=== PATIENT | male | born 1975 | race Two or more races ===

== ENCOUNTER 2018-03-04 17:37 | Emergency (ER) | payer OTHER ==
[~2018-03-04] VITALS: Ht 170.2 cm; Wt 74.8 kg
== END 2018-03-04 22:45 | disposition home or self-care (01) ==
LOC: ER 17:37
DX: R07.89 Other chest pain (principal)

== ENCOUNTER 2018-03-06 08:44 | Outpatient (CLI) | payer OTHER | END 2018-03-06 15:53 | disposition home or self-care (01) | LOC: NUCLEAR 08:44 | DX: I20.0 Unstable angina (principal); I10 Essential (primary) hypertension; E78.70 Disorder of bile acid and cholesterol metabolism, unspecified | CPT/HCPCS: 78452; 93017; A9500 ==

== ENCOUNTER 2019-11-12 11:40 | Outpatient (CLI) | payer OTHER | END 2019-11-12 11:41 | disposition home or self-care (01) | LOC: LAB 11:40 | PROVIDERS: ATTEND Obstetrics & Gynecology | DX: R05 Cough (principal); E78.2 Mixed hyperlipidemia; Z11.3 Encounter for screening for infections with a predominantly sexual mode of transmission ==

== ENCOUNTER 2020-12-14 08:00 | Outpatient (CLI) | payer OTHER | END 2020-12-14 08:30 | disposition home or self-care (01) | LOC: PPH VACUNA 08:00 | PROVIDERS: ATTEND Emergency Medicine Pediatric Emergency Medicine | DX: Z23 Encounter for immunization (principal) ==

== ENCOUNTER 2024-04-20 14:39 | Outpatient (CLI) | payer OTHER | END 2024-04-20 14:40 | disposition home or self-care (01) | LOC: RAD 14:39 | PROVIDERS: ATTEND Emergency Medicine Pediatric Emergency Medicine | DX: J32.0 Chronic maxillary sinusitis (principal); J30.9 Allergic rhinitis, unspecified ==

== ENCOUNTER 2024-05-17 10:48 | Outpatient (CLI) | payer OTHER | END 2024-05-17 10:51 | disposition home or self-care (01) | LOC: SONOGRAMA 10:48 | PROVIDERS: ATTEND Pathology Anatomic Pathology & Clinical Pathology | DX: R22.1 Localized swelling, mass and lump, neck (principal) ==